=== PATIENT | male | born 1970 | race Caucasian/White ===

== ENCOUNTER 2024-07-23 13:23 | Emergency (ER) | payer OTHER ==
[~2024-07-23] VITALS: Ht 170.2 cm; Wt 83.9 kg
[2024-07-23 13:47] VITALS: BP 155/85
[2024-07-23] MEDS ORDERED: Ketorolac Tromethamine 30mg Vial IM ONE (15:55)
[2024-07-23] MEDS ORDERED: Methocarbamol 500 MG Tab PO ONE (15:55)
[2024-07-23] MEDS ORDERED: Robaxin750 MG PO (15:59)
== END 2024-07-23 16:18 | disposition home or self-care (01) ==
LOC: ER 13:23
DX: M54.50 Low back pain, unspecified (principal); G89.29 Other chronic pain; I10 Essential (primary) hypertension; Z91.030 Bee allergy status
CPT/HCPCS: 96372; 99283-25; A9270; J1885

== ENCOUNTER 2025-03-04 08:39 | Day surgery (SDC) | payer OTHER ==
[2025-03-04] VITALS (8 sets, daily range): BP systolic 151–186; BP diastolic 75–124
[~2025-03-04] VITALS: Ht 172.7 cm; Wt 108.0 kg
[~2025-03-04 08:39] MED LIST: AMLO10 PO; ASPI81CH PO; ATOR40TA PO; Ativan1 MG PO; CLOB.05TO; IBUP800 PO; INDERAL XL80 MG PO; LOSA50 PO; METPRE4DP PO; NITR.4SL SL; NURTEC ODT75 MG PO; PANT40 PO; Robaxin750 MG PO; SUMA25 PO; TRAZ50 PO
[2025-03-04] MEDS ORDERED: Verapamil HCL 2.5 MG/ML 2ML Injection ONE (10:49)
[2025-03-04] MEDS ORDERED: NS 250 ML IV ONE (10:50)
[2025-03-04] MEDS ORDERED: Heparin Sodium 1000 Units/ML 10ML MDV ONE (10:50)
[2025-03-04] MEDS ORDERED: NS 1,000 ML IV ONE ×2 (10:50→11:01)
[2025-03-04] MEDS ORDERED: Nitroglycerin 2 MG/20 ML BTL ONE (10:50)
[2025-03-04] MEDS ORDERED: FentaNYL Citrate 50 MCG/ML 2 ML Injection ONE (11:00)
[2025-03-04] MEDS ORDERED: Midazolam HCl 1MG / ML 2ML Vial ONE (11:00)
--- NOTE | 2025-03-04 11:45 | NUR ---
PATIENT ARRIVED BACK TO RECOVERY ROOM SITTING UPRIGHT IN RECLINER. RIGHT RADIAL TR BAND FULLY INFLATED. SITE C/D/I SOFT/NONTENDER, NO EVIDENCE OF BLEEDING. PATIENT RESTING COMFORTABLY IN RECLINER, DENYING ANY PAIN. VSS ON RA.
--- NOTE | 2025-03-04 12:32 | NUR ---
INITIAL 2 CC OF AIRE REMOVED FROM RIGHT RADIAL TR BAND. SITE C/D/I SOFT/NONTENDER, NO EVIDENCE OF BLEEDING. VSS ON RA. PATIENT RESTING COMFORTABLY IN RECLINER, DENYING ANY PAIN.
--- NOTE | 2025-03-04 12:40 | NUR ---
PATIENT SITTING UPRIGHT IN RECLINER, TOLERATING PO INTAKE WELL. VSS ON RA. RIGHT RADIAL SITE C/D/I SOFT/NONTENDER, NO EVIDENCE OF BLEEDING.
--- NOTE | 2025-03-04 12:55 | NUR ---
ALL AIR REMOVED FROM RIGHT RADIAL TR BAND. SITE C/D/I SOFT/NONTENDER, NO EVIDENCE OF BLEEDING. PATIENT RESTING COMFORTBALY IN RECLINER, DENYING ANY PAIN.
--- NOTE | 2025-03-04 13:28 | NUR ---
DISCHARGE INSTRUCTIONS REVIEWED WITH PATIENT AND BROTHER AT BEDSIDE. ALL QUESTIONS WERE ANSWERED. RIGHT RADIAL TR BAND SITE C/D/I SOFT/NONTENDER.
--- NOTE | 2025-03-04 13:35 | NUR ---
PATIENT DISCHARGED HOME AT THIS TIME. RIGHT RADIAL TR BAND REMOVED, CLOTH DOT AND ARM BOARD IN PLACE. PATIENT INSTRUCTED ON RADIAL SITE CARE. PIV REMOVED WITHOUT DIFFICULTY, CATHETER INTACT. PATIENT AMBULATING TO RESTROOM WITHOUT DIFFICULTY. VSS ON RA.
== END 2025-03-04 13:35 | disposition home or self-care (01) ==
LOC: MHTC 08:39
DX: I25.10 Atherosclerotic heart disease of native coronary artery without angina pectoris (principal); E78.2 Mixed hyperlipidemia; I10 Essential (primary) hypertension; F32.A Depression, unspecified; F43.10 Post-traumatic stress disorder, unspecified; K21.9 Gastro-esophageal reflux disease without esophagitis; F17.210 Nicotine dependence, cigarettes, uncomplicated; E66.01 Morbid (severe) obesity due to excess calories; Z68.36 Body mass index [BMI] 36.0-36.9, adult; Z79.82 Long term (current) use of aspirin; Z79.899 Other long term (current) drug therapy; Z91.030 Bee allergy status; Z82.49 Family history of ischemic heart disease and other diseases of the circulatory system
CPT/HCPCS: 76937; 93454; 99152; 99153; C1769; C1887; C1894; J1644; J2250; J3010; J7030; J7050; Q9967